=== PATIENT | female | born 1975 | race Caucasian/White ===

== ENCOUNTER 2023-01-04 14:16 | Inpatient (IN) | payer OTHER, MEDICAID ==
[~2023-01-04] VITALS: Ht 139.7 cm; Wt 61.2 kg
[2023-01-04 14:17] VITALS: BP 120/72
--- NOTE | 2023-01-04 14:20 | NUR ---
patient taken to bed 1.
[2023-01-04] MEDS ORDERED: PIPERACILLIN/TAZOBACTAM 3.375 GM in DEXTROSE 5% 50 ML IV ONE (14:55)
[2023-01-04] MEDS ORDERED: NACL 0.9% 1,000 ML IV ONE ×3 (14:55→20:20)
[2023-01-04 15:16] LABS: HEMATOCRIT 43.2 % (36-48); HEMOGLOBIN 14.5 g/dL (12.0-16.0); MEAN CORPUSCULAR HEMOGLOBIN 31 pg (27-31); MEAN CORPUSCULAR HGB CONC 34 g/dL (33-37); MEAN CORPUSCULAR VOLUME 91.3 fL (80-94); PLATELET COUNT (AUTO) 432 K/uL (140-450); RED BLOOD CELL COUNT(AUTO) 4.73 MIL/uL (4.20-5.40); WHITE BLOOD COUNT (AUTO) 20.7 K/uL (4.8-10.8)
[2023-01-04 15:39] LABS: ALBUMIN 3.5 g/dL (3.4-5.0); ANION GAP 19.4 (8-16); CARBON DIOXIDE 22.3 mmol/L (21-32); CREATININE 0.6 mg/dL (0.6-1.3); POTASSIUM 4.7 mmol/L (3.5-5.1); TOTAL BILIRUBIN 0.4 mg/dL (0.0-1.0)
[2023-01-04 15:40] LABS: EOSINOPHILS % (MANUAL) 1 % (0-4); LYMPHOCYTES % (MANUAL) 12 % (20-46); METAMYELOCYTES % 1 % (0-0); PROMYELOCYTES % 1 % (0-0); PROTHROMBIN TIME 10.6 secs (10.8-13.4)
[2023-01-04 16:04] LABS: APPEARANCE,URINE CLEAR (CLEAR); BILIRUBIN,URINE NEGATIVE (NEGATIVE); BLOOD, URINE NEGATIVE (NEGATIVE); COLOR,URINE YELLOW (YELLOW); LEUKOCYTE ESTERASE ,URINE NEGATIVE (NEGATIVE); NITRITE, URINE NEGATIVE (NEGATIVE); PH,URINE 6.5 (5.0-9.0); UGLUCOSE NEGATIVE (NEGATIVE)
[2023-01-04] MEDS ORDERED: MORPHINE SULFATE 4 MG/ML SYR IVP ONE (17:25)
--- NOTE | 2023-01-04 18:00 | NUR ---
patient taken to CT scan with RT and RN.
--- NOTE | 2023-01-04 19:13 | NUR ---
PT RC'D IN BED 1, REPORT RC'D FROM GILLIAN CAUSEY. PENDING CT RESULTS AND FURTHER ORDERS.
--- NOTE | 2023-01-04 19:35 | NUR ---
PT PENDING ADMISSION
[2023-01-04] MEDS ORDERED: IBUP-2213 PO (20:28)
[2023-01-04] MEDS ORDERED: DICY10CA14 PO (20:28)
[2023-01-04] MEDS ORDERED: ACET-2619 PO (20:28)
[2023-01-04] MEDS ORDERED: WHEA1POW16 PO (20:28)
[2023-01-04] MEDS ORDERED: ACETAMINOPHEN 325 MG TAB PO PRN (21:00)
[2023-01-04] MEDS ORDERED: guaiFENesin DM 200/20 MG-10 ML 10 ML UDC PO PRN (21:00)
[2023-01-04] MEDS ORDERED: ZOLPIDEM 5 MG TAB PO PRN (21:00)
[2023-01-04] MEDS ORDERED: DOCUSATE SODIUM 100 MG GELCAP PO PRN (21:00)
[2023-01-04] MEDS ORDERED: ONDANSETRON 4 MG/2 ML VIAL IM/IVP PRN (21:00)
[2023-01-04] MEDS ORDERED: HYDROcodone/APAP 7.5/325 MG 1 TAB PO PRN (21:00)
[2023-01-04] MEDS: DEXT 5% /NACL 0.9% 1,000 ML IV SCH (21:05)
[2023-01-04] MEDS ORDERED: PSYL575P2 PO (21:15)
[2023-01-04] MEDS ORDERED: MONT-72 PO (21:15)
[2023-01-04 21:58] LABS: PROTHROMBIN TIME 10.4 secs (10.8-13.4)
--- NOTE | 2023-01-04 22:00 | NUR ---
APatient will be admitted to care of . Admited to TELE. Will go to room. Belongings list completed. Report to DIESEL TRAILER MECHANIC.
--- NOTE | 2023-01-04 22:07 | NUR ---
PT WAS ADMITTED TO [facility] DEPARTMENT FROM ER WITH DIAGNOSIS OF SEPSIS. PT IS APHASIC AND BEDBOUND. PT IS ON TRACH TO VENT WITH HC37-872%, RATE OF 20, PEEP OF 5 AND PMAX OF 35. PT IS ON NPO AND HAS G-TUBE. PT HAS IV ON LEFT FOREARM GAUGE 20 RUNNING WITH NS AT 100 BUT THE ORDER IS D5NS AT 115 ML/HR. CHANGED IVF TO D5NS AT 115ML/HR. NO S/S OF RESPIRATORY DISTRESS NOTED. ALL SAFETY MEASURES IMPLEMENTED. BED IN LOW POSITION, BED WHEELS ON LOCK AND CALL LIGHT WITHIN REACH.
[2023-01-04 22:09] LABS: CHOL/HDL RATIO 2.6 (1-4.5); MAGNESIUM 2.4 mg/dL (1.8-2.4); THYROID STIMULATING HORMONE 1.51 uIU/mL (0.34-3.74)
[2023-01-04 22:26] LABS: FREE T4 (FREE THYROXINE) 1.35 ng/dL (0.76-1.46)
[2023-01-04] MEDS ORDERED: PIPERACILLIN/TAZOBACTAM 3.375 GM VIAL IV ONE (23:20)
[2023-01-04] MEDS: PIPERACILLIN/TAZOBACTAM 3.375 GM in DEXTROSE 5% 50 ML IV SCH (23:24)
--- NOTE | 2023-01-05 00:02 | NUR ---
SCHEDULED AND PRESCRIBED MEDICATION WAS GIVEN TO PT PER MD ORDER. NO S/S OF RESPIRATORY DISTRESS NOTED. ALL SAFETY MEASURES IMPLEMENTED. BED IN LOW POSITION, BED WHEELS ON LOCK AND CALL LIGHT WITHIN REACH.
--- NOTE | 2023-01-05 02:00 | NUR ---
PT IS ON SLEEP. CHEST RISE AND FALL SYMMETRICALLY NOTED. RESPIRATION IS EVEN AND UNLABORED. ALL SAFETY MEASURES IMPLEMENTED. BED IN LOW POSITION, BED WHEELS ON LOCK AND CALL LIGHT WITHIN REACH.
[2023-01-05 04:00] VITALS: BP 155/99
--- NOTE | 2023-01-05 04:00 | NUR ---
MORNING CARE WAS DONE TO PT. CHANGED GOWN, LINENS AND DIAPER. ALSO, ORAL CARE AND SUCTIONED THE PT. NO S/S OF RESPIRATORY DISTRESS NOTED. CHECKED THE PT STILL ON SLEEP. CHEST RISE AND FALL SYMMETRICALLY NOTED. RESPIRATION IS EVEN AND UNLABORED. ALL SAFETY MEASURES IMPLEMENTED. BED IN LOW POSITION, BED WHEELS ON LOCK AND CALL LIGHT WITHIN REACH.
[2023-01-05] MEDS ORDERED: PIPERACILLIN/TAZOBACTAM 3.375 GM VIAL IV ONE (05:09)
[2023-01-05] MEDS: PIPERACILLIN/TAZOBACTAM 3.375 GM in DEXTROSE 5% 50 ML IV SCH ×3 (05:17→18:12)
[2023-01-05] MEDS: DEXT 5% /NACL 0.9% 1,000 ML IV SCH ×2 (05:52→14:36)
[2023-01-05 07:06] LABS: BASOPHILS # (AUTO) 0.1 K/uL (0.00-0.22); BASOPHILS % (AUTO) 0.5 % (0.0-2.0); EOSINOPHILS # (AUTO) 0.4 K/uL (0-0.4); EOSINOPHILS % (AUTO) 2.6 % (0.0-4.0); HEMATOCRIT 39.2 % (36-48); HEMOGLOBIN 13.2 g/dL (12.0-16.0); LYMPHOCYTES # (AUTO) 2.6 K/uL (2.5-16.5); LYMPHOCYTES % (AUTO) 16.7 % (20.5-51.1); MEAN CORPUSCULAR HEMOGLOBIN 31 pg (27-31); MEAN CORPUSCULAR HGB CONC 34 g/dL (33-37); MEAN CORPUSCULAR VOLUME 91.3 fL (80-94); MONOCYTES # (AUTO) 1.2 K/uL (0.8-1.0); MONOCYTES % (AUTO) 7.8 % (1.7-9.3); NEUTROPHILS # (AUTO) 11.3 K/uL (1.8-7.7); NEUTROPHILS % (AUTO) 72.4 % (42.2-75.2); PLATELET COUNT (AUTO) 371 K/uL (140-450); WHITE BLOOD COUNT (AUTO) 15.5 K/uL (4.8-10.8)
--- NOTE | 2023-01-05 07:11 | NUR ---
PT IS STABLE. ENDORSED PT TO MORNING SHIFT NURSE FOR CONTINUITY OF CARE.
[2023-01-05 07:13] LABS: ANION GAP 15.8 (8-16); CARBON DIOXIDE 21.8 mmol/L (21-32); CREATININE 0.3 mg/dL (0.6-1.3); POTASSIUM 3.6 mmol/L (3.5-5.1)
[2023-01-05 08:00] VITALS: BP 138/106
[2023-01-05] MEDS: PANTOPRAZOLE 40 MG TABEC PO SCH (09:20)
[2023-01-05 12:00] VITALS: BP 151/97
--- NOTE | 2023-01-05 15:38 | NUR ---
SCREEN FOR LOW KEYSHA SCALE AT RISK, CONTINUE TO FOLLOW PRESSURE ULCER PREVENTION INTERVENTIONS. -TURN AND REPOSITION PATIENT Q 2H, ASSIST IF NEEDED -ASSESS AND MONITOR SKIN CONDITION DURING POSITION CHANGES -OFFLOAD BILATERAL HEELS BY PLACING PILLOWS UNDER CALVES AT ALL TIMES, UNLESS OTHERWISE CONTRAINDICATED -PRESSURE REDISTRIBUTION BY PLACING PILLOWS AND OFFLOADING SACRALCOCCYX -KEEP SKIN CLEAN AND DRY AT ALL TIMES.
[2023-01-05 16:00] VITALS: BP 150/103
--- NOTE | 2023-01-05 19:15 | NUR ---
RECEIVED PT FROM MORNING SHIFT NURSE. PT IS APHASIC AND BEDBOUND. RESPIRATORY THERAPIST FROM THE BOARD AND CARE OF THE PT WAS ON BEDSIDE. PT IS ON TRACH TO VENT WITH FI02-35%, RATE OF 20, PEEP OF 5 AND PMAX OF 35. PT IS ON NPO AND HAS G-TUBE. PT HAS IV ON LEFT FOREARM GAUGE 20 RUNNING WITH D5NS AT 115ML/HR. NO S/S OF RESPIRATORY DISTRESS NOTED. ALL SAFETY MEASURES IMPLEMENTED. BED IN LOW POSITION, BED WHEELS ON LOCK AND CALL LIGHT WITHIN REACH.
[2023-01-05 20:00] VITALS: BP 148/76
--- NOTE | 2023-01-05 22:00 | NUR ---
SUCTIONED AND REPOSITION THE PT. NO S/S OF RESPIRATORY DISTRESS NOTED. ALL SAFETY MEASURES IMPLEMENTED. BED IN LOW POSITION, BED WHEELS ON LOCK AND CALL LIGHT WITHIN REACH.
[2023-01-06] VITALS: BP 158/100
[2023-01-06] MEDS: PIPERACILLIN/TAZOBACTAM 3.375 GM in DEXTROSE 5% 50 ML IV SCH ×4 (00:02→17:37)
--- NOTE | 2023-01-06 02:00 | NUR ---
PT IS ON SLEEP. CHEST RISE AND FALL SYMMETRICALLY NOTED. RESPIRATION IS EVEN AND UNLABORED. ALL SAFETY MEASURES IMPLEMENTED. BED IN LOW POSITION AND CALL LIGHT WITHIN REACH.
[2023-01-06 04:00] VITALS: BP 148/84
--- NOTE | 2023-01-06 04:00 | NUR ---
MORNING CARE WAS DONE TO PT. CHANGED LINENS, GOWNS AND CHUCKS. ORAL CARE AND SUCTIONED. ALL SAFETY MEASURES IMPLEMENTED. BED IN LOW POSITION AND CALL LIGHT WITHIN REACH.
--- NOTE | 2023-01-06 07:34 | NUR ---
PT IS STABLE. ENDORSED PT TO MORNING SHIFT CARE FOR CONTINUITY OF CARE.
[2023-01-06 08:05] VITALS: BP 139/81
[2023-01-06 08:47] LABS: BASOPHILS # (AUTO) 0.2 K/uL (0.00-0.22); BASOPHILS % (AUTO) 1.4 % (0.0-2.0); EOSINOPHILS # (AUTO) 0.1 K/uL (0-0.4); EOSINOPHILS % (AUTO) 0.7 % (0.0-4.0); HEMATOCRIT 39.1 % (36-48); HEMOGLOBIN 13.2 g/dL (12.0-16.0); LYMPHOCYTES # (AUTO) 1.9 K/uL (2.5-16.5); LYMPHOCYTES % (AUTO) 16.2 % (20.5-51.1); MEAN CORPUSCULAR HEMOGLOBIN 31 pg (27-31); MEAN CORPUSCULAR HGB CONC 34 g/dL (33-37); MEAN CORPUSCULAR VOLUME 90.8 fL (80-94); MONOCYTES # (AUTO) 0.7 K/uL (0.8-1.0); MONOCYTES % (AUTO) 6.1 % (1.7-9.3); NEUTROPHILS # (AUTO) 8.6 K/uL (1.8-7.7); NEUTROPHILS % (AUTO) 75.6 % (42.2-75.2); PLATELET COUNT (AUTO) 333 K/uL (140-450); WHITE BLOOD COUNT (AUTO) 11.4 K/uL (4.8-10.8)
[2023-01-06 09:01] LABS: ANION GAP 15.1 (8-16); CARBON DIOXIDE 22.2 mmol/L (21-32); CREATININE 0.5 mg/dL (0.6-1.3); POTASSIUM 3.3 mmol/L (3.5-5.1)
[2023-01-06] MEDS: DEXT 5% /NACL 0.9% 1,000 ML IV SCH ×3 (09:10→17:15)
[2023-01-06] MEDS: PANTOPRAZOLE 40 MG TABEC PO SCH (09:10)
[2023-01-06] MEDS: POTASSIUM CHLORIDE 10 MEQ TABER PO PRN (09:14)
--- NOTE | 2023-01-06 10:06 | NUR ---
PATIENT HAS BEEN SCREENED AND CATEGORIZED HIGH NUTRITION RISK. PATIENT WILL BE SEEN WITHIN 1-2 DAYS OF ADMISSION. 01/04/23-01/06/[address] FNS CONSULT RECEIVED FOR TUBE FEEDING
--- NOTE | 2023-01-06 11:21 | NUR ---
01/06/23 RD INITIAL ASSESSMENT COMPLETED. PLEASE REFER TO NUTRITION ASSESSMENT UNDER CARE ACTIVITY FOR ESTIMATED NUTRITIONAL NEEDS. 1. WHEN/IF MEDICALLY APPROPRIATE TO START TUBE FEED, RECOMMEND JEVITY 1.2 MAYA WITH A GOAL RATE OF 45 ML/HR -START AT 20 ML/HR AND INCREASE BY 20 ML Q4H PT TOLERATES UNTIL GOAL RATE IS REACHED -FWF 100 ML Q8H OR PER MD THIS WILL PROVIDE APPROXIMATELY 1296 KCAL, 60 GRAMS OF PROTEIN, AND 1172 ML FREE WATER, MEETING 93% OF ESTIMATED KCAL AND 100% OF PROTEIN NEEDS; ADEQUATE 2. MONITOR GI SYMPTOMS 3. RD TO FOLLOW-UP 2-3 DAYS, HIGH RISK GIAN NERI RD
[2023-01-06 11:53] VITALS: BP 152/92
[2023-01-06 16:08] VITALS: BP 152/92
--- NOTE | 2023-01-06 19:15 | NUR ---
RECEIVED PT FROM MORNING SHIFT NURSE. PT IS APHASIC AND BEDBOUND. PT IS ON TRACH TO VENT WITH FI02-35%, RATE OF 20, PEEP OF 5 AND PMAX OF 35. PT HAS G-TUBE RUNNING WITH JEVITY 1.2 25ML/HR WITH WATER FLUSH OF 100ML EVERY 8HRS WITH A GOAL OF 45ML/HR.. PT HAS IV ON RIGHT FOREARM GAUGE 22, SALINE LOCK AND LEFT FOREARM GAUGE 20 RUNNING WITH D5NS AT 115ML/HR. NO S/S OF RESPIRATORY DISTRESS NOTED. ALL SAFETY MEASURES IMPLEMENTED. BED IN LOW POSITION, BED WHEELS ON LOCK AND CALL LIGHT WITHIN REACH.
[2023-01-06 20:00] VITALS: BP 143/84
--- NOTE | 2023-01-06 22:00 | NUR ---
SUCTIONED, CLEANED AND TURNED THE PT. NO S/S OF RESPIRATORY DISTRESS NOTED. ALL SAFETY MEASURES IMPLEMENTED. BED IN LOW POSITION, BED WHEELS ON LOCK AND CALL LIGHT WITHIN REACH.
[2023-01-07] VITALS: BP 150/95
--- NOTE | 2023-01-07 | NUR ---
PT IS ON SLEEP. CHEST RISE AND FALL SYMMETRICALLY NOTED. RESPIRATION IS EVEN AND UNLABORED. NO S/S OF RESPIRATORY DISTRESS NOTED. ALL SAFETY MEASURES IMPLEMENTED. BED IN LOW POSITION, BED WHEELS ON LOCK AND CALL LIGHT WITHIN REACH.
[2023-01-07] MEDS: DEXT 5% /NACL 0.9% 1,000 ML IV SCH ×4 (01:20→21:58)
--- NOTE | 2023-01-07 02:00 | NUR ---
CHECKED THE PT, STILL ON SLEEP. CHEST RISE AND FALL SYMMETRICALLY NOTED. RESPIRATION IS EVEN AND UNLABORED. NO S/S OF RESPIRATORY DISTRESS NOTED. ALL SAFETY MEASURES IMPLEMENTED. BED IN LOW POSITION, BED WHEELS ON LOCK AND CALL LIGHT WITHIN REACH.
[2023-01-07 04:00] VITALS: BP 151/86
--- NOTE | 2023-01-07 04:00 | NUR ---
MORNING CARE WAS DONE TO PT. CHANGED LINENS, GOWN AND CHUCKS. ORAL CARE AND SUCTION WAS ALSO DONE. NO S/S OF RESPIRATORY DISTRESS NOTED. ALL SAFETY MEASURES IMPLEMENTED. BED IN LOW POSITION, BED WHEELS ON LOCK AND CALL LIGHT WITHIN REACH.
[2023-01-07] MEDS ORDERED: MEROPENEM 1,000 MG VIAL IV ONE (04:33)
[2023-01-07] MEDS: MEROPENEM 1,000 MG in NACL 0.9% 50 ML IV SCH ×3 (04:42→21:51)
--- NOTE | 2023-01-07 07:24 | NUR ---
PT IS STABLE. ENDORSED PT TO MORNING SHIFT NURSE FOR CONTINUITY OF CARE.
[2023-01-07 08:00] VITALS: BP 136/81
--- NOTE | 2023-01-07 09:45 | NUR ---
PT. WITH LOW KEYSHA SCALE AT MODERATE TO HIGH RISK, CONTINUE TO FOLLOW PRESSURE INJURY PREVENTION INTERVENTIONS. -POSITIONING: TURN AND REPOSITION PATIENT Q 2H OR SOONER USE PILLOWS TO KEEP BONY PROMINENCES FROM DIRECT CONTACT WITH SURFACES USE REPOSITIONING WEDGES TO PROVIDE 30-DEGREE ANGLE FOR SIDE LYING POSITIONS OFFLOADING OR FOAM DRESSING TO ALL TUBING TO PREVENT MEDICAL DEVICES RELATED PRESSURE INJURY -RE-EVALUATING AND MANAGING INCONTINENCE MONITOR SKIN CONDITION DURING POSITION CHANGE DO NOT MASSAGE REDNESS, BONY PROMINENCES FREQUENT AMMON-CARE AND PROVIDE BARRIER CREAMS PRN IF SOILING MOISTURE CONTROL BY OFFER BED CAICEDO/URINAL /ABSORBENT PAD TO WICK AND HOLD MOISTURE KEEP SKIN DRY AND PROTECT FROM FRICTION -MANAGE FRICTION/SHEAR/MOBILITY KEEP HOB AT THE LOWEST LEVEL OF ELEVATION NO MORE THAN 30 DEGREE UNLESS OTHERWISE CONTRAINDICATED USE LIFT SHEET OR TRANSFER DEVICE TO MOVE PATIENT AND PREVENT LATERAL SHEER. PROTECT HEELS, ELBOWS BONY PROMINENCES WITH SKIN BERRIES OR FOAM DRESSING IF EXPOSED TO FRICTION OFFLOAD BILATERAL HEELS BY PLACING PILLOWS UNDER CALVES AT ALL TIMES, UNLESS OTHERWISE CONTRAINDICATED -PRESSURE REDISTRIBUTION SURFACE THERAPY SJ ISOFLEX MATTRESS -NUTRITION: PLEASE FOLLOW RD RECOMMENDATIONS AND OFFER NUTRITION SUPPLEMENTS IF ORDERED. PLEASE CONTACT WOUND CARE NURSE FOR ANY QUESTION AND CHANGE OF WOUND CONDITION.
[2023-01-07] MEDS: POTASSIUM CHLORIDE 10 MEQ TABER PO PRN (10:05)
[2023-01-07] MEDS: PANTOPRAZOLE 40 MG TABEC PO SCH (10:05)
[2023-01-07] MEDS ORDERED: MERO1VIA15 IV (10:43)
[2023-01-07 11:10] LABS: BASOPHILS % (AUTO) 0.3 % (0.0-2.0); EOSINOPHILS # (AUTO) 0.3 K/uL (0-0.4); EOSINOPHILS % (AUTO) 2.9 % (0.0-4.0); HEMATOCRIT 35.8 % (36-48); HEMOGLOBIN 12.1 g/dL (12.0-16.0); LYMPHOCYTES # (AUTO) 2.6 K/uL (2.5-16.5); MEAN CORPUSCULAR HEMOGLOBIN 31 pg (27-31); MEAN CORPUSCULAR HGB CONC 34 g/dL (33-37); MEAN CORPUSCULAR VOLUME 91.1 fL (80-94); MONOCYTES % (AUTO) 9.1 % (1.7-9.3); NEUTROPHILS % (AUTO) 63.7 % (42.2-75.2); PLATELET COUNT (AUTO) 301 K/uL (140-450); RED BLOOD CELL COUNT(AUTO) 3.93 MIL/uL (4.20-5.40); RED CELL DISTRIBUTION WIDTH 13.1 % (11.6-13.7); WHITE BLOOD COUNT (AUTO) 10.9 K/uL (4.8-10.8)
[2023-01-07 11:36] LABS: ANION GAP 10.8 (8-16); CARBON DIOXIDE 27.9 mmol/L (21-32); CREATININE 0.3 mg/dL (0.6-1.3); POTASSIUM 3.7 mmol/L (3.5-5.1)
[2023-01-07 12:00] VITALS: BP 137/93
--- NOTE | 2023-01-07 12:31 | NUR ---
DC PLANNING: CM CALLED [facility] SPOKE WITH BENNIE THE ADMIN DISCUSSED THE DC PLAN PER [place] THEY DON'T HAVE RN TO ADMINISTER THE IV ABX HOW [facility] THEY PREFERRED HOME HEALTH TO COME TO THE [facility]. CM FAXED TO [facility] AND SPOKE WITH TARA REGARDING THE HOME HEALTH FOR IV ABX PE TARA WILL REVIEW AND CALL US BACK. CM TO FOLLOW Addendum: 01/07/23 at 1758 by Alycia Hernandez RN DC PLANNING: PER BENNIE AT THE [facility] UNABLE TO TAKE HOME HEALTH NO STAFF CAN BE TEACHABLE FOR NIGHT DOSE. BECAUSE OF THAT PREFERRED PATIENT TO GO TO [facility]. CALLED [facility] NO FEMALE BED AVAILABLE, [facility] REVIEWING THE CASE. CM TO FOLLOW Addendum: 01/08/23 at 1056 by Maryan Ying CM DC PLANNING: MADE A FOLLOW UP CALL TO NISHANT OF [facility]. PER NISHANT THEY ARE ABLE TO ACCEPT THE PATIENT. HE ALSO STATED THAT THEY WILL DOO ROOM CHANGES TO ACCOMMODATE THE PATIENT. PER NISHANT, HE WILL CONTACT THIS CM ONCE BED IS AVAILABLE. RECEIVED A VOICE MESSAGE FROM CELIA OF [facility] [phone] REQUESTING A CALL BACK. CELIA UPDATED THAT [facility] ACCEPTED THE PATIENT AND IS IN AGREEMENT. INFORMED CELIA THAT THIS WILL CALL HER WITH UPDATES ONCE BED IS AVAILABLE. Addendum: 01/08/23 at 1411 by FREDDY ALMONTE PT WAS ACCEPTED AT [facility] [phone] LOCATED AT [address] [facility] [id number] [address] [facility]. TRANSPORTATION SET UP WITH RAY AT [facility] WITH A 1600 [employer] MANAGEMENT ANALYST TIME. NURSE ART AND BENNIE NOTIFIED OF THE ABOVE INFORMATION.
[2023-01-07 16:00] VITALS: BP 134/76
--- NOTE | 2023-01-07 19:45 | NUR ---
PATIENT IN BED WITH TRACH TO VENT NON VERBAL. NO S/S OF RESPIRATORY DISTRESS. BREATHING REGULAR NON LABORED. ALL SAFETY PRECAUTIONS ARE IN PLACE. TUBE FEEDING JEVITY 1.2 RUNNING 45 ML/HR TOLERATING WELL. NO S/S OF PAIN. SKIN WARM AND DRY TO THE TOUCH. A
[2023-01-07 20:00] VITALS: BP 143/97
--- NOTE | 2023-01-07 21:51 | NUR ---
ADMINISTERED SCHEDULED DUE MEDICATION.
[2023-01-08] VITALS: BP 156/92
--- NOTE | 2023-01-08 02:57 | NUR ---
RIVKA CHAN FROM [facility] CALLED, QUESTIONS ANSWERED.
[2023-01-08] MEDS: DEXT 5% /NACL 0.9% 1,000 ML IV SCH ×2 (03:23→12:08)
[2023-01-08 04:00] VITALS: BP 155/117
[2023-01-08] MEDS: MEROPENEM 1,000 MG in NACL 0.9% 50 ML IV SCH ×2 (05:24→12:48)
--- NOTE | 2023-01-08 07:09 | NUR ---
ENDORSED PATIENT TO DAY SHIFT NURSE FOR CONTINUITY OF CARE.
--- NOTE | 2023-01-08 07:09 | NUR ---
BLOOD SUGAR CHECKED WAS 114, NO INSULIN COVERAGE NEEDED. Addendum: 01/08/23 at 0709 by Gricelda Rodriguez RN RN WRONG PATIENT
[2023-01-08 07:16] LABS: BASOPHILS % (AUTO) 0.3 % (0.0-2.0); EOSINOPHILS # (AUTO) 0.3 K/uL (0-0.4); EOSINOPHILS % (AUTO) 2.3 % (0.0-4.0); HEMATOCRIT 38.7 % (36-48); LYMPHOCYTES % (AUTO) 21.2 % (20.5-51.1); MEAN CORPUSCULAR HEMOGLOBIN 31 pg (27-31); MEAN CORPUSCULAR HGB CONC 34 g/dL (33-37); MEAN CORPUSCULAR VOLUME 90.7 fL (80-94); MONOCYTES % (AUTO) 7.2 % (1.7-9.3); NEUTROPHILS # (AUTO) 9.9 K/uL (1.8-7.7); PLATELET COUNT (AUTO) 343 K/uL (140-450); RED BLOOD CELL COUNT(AUTO) 4.27 MIL/uL (4.20-5.40); RED CELL DISTRIBUTION WIDTH 13.1 % (11.6-13.7); WHITE BLOOD COUNT (AUTO) 14.3 K/uL (4.8-10.8)
[2023-01-08 07:25] LABS: ANION GAP 10.9 (8-16); CARBON DIOXIDE 27.2 mmol/L (21-32); CREATININE 0.4 mg/dL (0.6-1.3); POTASSIUM 4.1 mmol/L (3.5-5.1)
[2023-01-08] MEDS: PANTOPRAZOLE 40 MG TABEC PO SCH (08:58)
[2023-01-08 09:06] VITALS: BP 112/79
[2023-01-08 12:00] VITALS: BP 157/94
[2023-01-08] MEDS ORDERED: hydrALAZINE 20 MG/ML VIAL IVP SCH (13:00)
[2023-01-08 13:47] VITALS: BP 164/94
--- NOTE | 2023-01-08 14:10 | NUR ---
TRANSFER SET UP FOR [address] [facility].
[2023-01-08 16:00] VITALS: BP 148/94
--- NOTE | 2023-01-08 16:04 | NUR ---
ATTEMPT REPORT X4 WITH R[facility] NIXON, "CALL BACK IN TEN MINUTES" IS THE DIRECTION EACH TIME.
[2023-01-08] MEDS ORDERED: hydrALAZINE 25 MG TAB ONE (17:21)
[2023-01-08] MEDS ORDERED: hydrALAZINE 25 MG TAB PO SCH (18:00)
== END 2023-01-08 17:34 | DRG 870 ==
LOC: MED 14:16 → MTU 20:19 → MMU 21:01
PROVIDERS: ADMIT Family Medicine; ATTEND Family Medicine
PROC: 5A1955Z Respiratory Ventilation, Greater than 96 Consecutive Hours (ICD-10-PCS; principal; 2023-01-04)
DX: A41.9 Sepsis, unspecified organism (principal); J69.0 Pneumonitis due to inhalation of food and vomit; J96.10 Chronic respiratory failure, unspecified whether with hypoxia or hypercapnia; Z99.11 Dependence on respirator [ventilator] status; N39.0 Urinary tract infection, site not specified; E87.20 Acidosis, unspecified; R13.10 Dysphagia, unspecified; E87.6 Hypokalemia; E78.5 Hyperlipidemia, unspecified; N20.0 Calculus of kidney; J45.909 Unspecified asthma, uncomplicated; K59.00 Constipation, unspecified; K76.0 Fatty (change of) liver, not elsewhere classified; N28.1 Cyst of kidney, acquired; Z20.822 Contact with and (suspected) exposure to COVID-19; Z93.0 Tracheostomy status; Z93.1 Gastrostomy status
CPT/HCPCS: 36415; 71045; 80048; 80053; 81003; 82150; 82550; 83036; 83605; 83690; 83735; 83880; 84100; 84436; 84439; 84443; 84479; 84484; 85025; 85610; 85730; 87040; 87081; 87086; 94002; 94003; 96361; 96374; 96375; 99291; J0360; J2185; J2270; J2543; J7060; Q9967